=== PATIENT | male | born 1950 | race Caucasian/White ===

== ENCOUNTER 2019-05-17 23:57 | Emergency (ER) | payer MEDICAID, MEDICARE ==
[~2019-05-17] VITALS: Ht 177.8 cm; Wt 70.0 kg
[~2019-05-17 23:57] MED LIST: ATENOLOL; FOLI0.4T2 MT; RANITIDINE; TRAM150C25 MT; TRAZADONE
[2019-05-17] MEDS ORDERED: SODIUM BICARBONATE 8.4% MEQ/ML 50ML VIAL IV ONE (23:58)
[2019-05-17] MEDS ORDERED: EPINEPHRINE 0.1MG/ML (1:10,000) 10ML SYR ONE (23:58)
[2019-05-18] VITALS: BP 0/0
[2019-05-18] MEDS ORDERED: DEXTROSE 50% WATER 50ML SYRINGE IV ONE ×2 (00:06→00:11)
== END 2019-05-18 00:15 | disposition expired ==
LOC: ER 23:57
DX: I46.9 Cardiac arrest, cause unspecified (principal); I11.0 Hypertensive heart disease with heart failure; I50.9 Heart failure, unspecified; D64.9 Anemia, unspecified; Z87.19 Personal history of other diseases of the digestive system; Z90.49 Acquired absence of other specified parts of digestive tract; Z79.899 Other long term (current) drug therapy
CPT/HCPCS: 92950; 99285; J3490